=== PATIENT | male | born 1995 | race Hispanic/Latino ===

== ENCOUNTER 2024-11-12 13:48 | Emergency (ER) | payer SELFPAY ==
--- NOTE | ~2024-11-12 | XR_ITS ---
EXAMINATION: XR chest 2V DATE: 11/12/2024 15:32 INDICATION: Shortness of breath TECHNIQUE: PA and lateral views of the chest were obtained. COMPARISON: None FINDINGS: The lungs are clear with no focal airspace opacities, pulmonary edema, pleural effusion or pneumothor ax. The cardiomediastinal silhouette is normal. Visualized bones and soft tissues are unremarkable. IMPRESSION: 1. No acute cardiopulmonary disease. Reviewed, dictated and finalized at location A.
--- NOTE | 2024-11-12 13:50 | ECG_ITS ---
Test Date: 2024-11-12 14:11:05 Measurements Intervals [place] Rate: 100 P: 45 VT: 172 QRS: 107 QRSD: 89 T: 37 QT: 329 QTc: 426 Interpretive Statements SINUS TACHYCARDIA INDETERMINATE AXIS BORDERLINE ECG No previous ECG available for comparison Electronically Signed On 11-12-2024 15:50:45 CDT by Praneeth Adams M.D.
[2024-11-12 14:02] VITALS: BP 133/84; PULSE 100; RESP 19; TEMP 36.4; O2SAT 96
--- NOTE | 2024-11-12 14:02 | ED_ITS ---
HPI - SOB/Dyspnea General Chief Complaint: Shortness of Breath/Dyspnea Stated Complaint: SOB Time Seen by Provider: 11/12/24 14:02 Focused HPI: This is a 29 year old male that presents to the ER for shortness of breath. Reports history of asthma. Reports he has been out of his inhaler for a year. He is unsure the name of the inhaler, but uses it as needed. Reports he has been having frequent exacerbations. Denies fever, cough. GENERAL: Well-appearing, well-nourished, and in no acute distress. HEAD: Normocephalic, atraumatic. CHEST: No respiratory distress. Mild expiratory wheezing HEART: Regular rate and rhythm.? NEURO: ?Alert and oriented x3. Patient screened in triage and initial orders placed.? ?Additional care and disposition to be based upon?diagnostic testing and treatment. Related Data Allergies Allergy/AdvReac Type Severity Reaction Status Date / Time No Known Allergies Allergy Verified 11/12/24 13:49 Review of Systems 2 Review of Systems: All systems reviewed & are unremarkable except as noted in HPI and below PMFSH Past Medical History Medical History (Updated 11/12/24 @ 16:46 by Tiffani Silvestre PA-C) History of asthma Social History Social History (Updated 11/12/24 @ 15:59 by Tiffani Silvestre PA-C) Substance use: never Exam 2 Narrative: GENERAL: Well-appearing, well-nourished, and in no acute distress. HEAD: Normocephalic, atraumatic. EYES: EOMI. ENT: Nares clear, no rhinorrhea or epistaxis. Mucous membranes moist. Oropharynx without tonsillar hypertrophy exudate or other lesions. CHEST: No respiratory distress. Mild, expiratory wheezing. No rales or rhonchi HEART: Regular rate and rhythm. No murmur heard. Normal peripheral pulses. EXTREMITIES: Normal range of motion. No edema. SKIN: Warm, dry, no rash. NEURO: No focal deficits. Alert and oriented x3. PSYCH: Normal mood and affect Course Course Emergency Course: patient updated on his workup and agrees with plan of care Vital Signs Vital signs: Vital Signs Temperature 97.5 F L 11/12/24 14:02 Pulse Rate 100 11/12/24 14:02 Respiratory Rate 19 11/12/24 14:02 Blood Pressure 133/84 11/12/24 14:02 Pulse Oximetry 96 11/12/24 14:02 Oxygen Delivery Room Air 11/12/24 14:02 Temperature 97.5 F L 11/12/24 14:02 Pulse Rate 100 11/12/24 16:24 Respiratory Rate 17 11/12/24 16:24 Blood Pressure 113/77 11/12/24 16:05 Pulse Oximetry 99 11/12/24 16:06 Oxygen Delivery Room Air 11/12/24 16:06 MDM - SOB/Dyspnea MDM Narrative Medical decision making narrative: Patient presents to the emergency department for shortness of breath, reports he is currently out of his inhaler. He is afebrile and nontoxic appearing. Mild expiratory wheezing upon arrival. This improved after nebulizer treatment. Patient given a dose of prednisone. Blood work without concerning findings. Chest x-ray without acute cardiopulmonary abnormality. Patient updated on his workup and agrees with plan of care. Will be given a prescription for albuterol and continued on a steroid. He was instructed on the importance of seeing a primary doctor. He was given warnings to return to the ER Differential Diagnosis Differential diagnosis: Likely community acquired pneumonia and asthma with exacerbation Lab Data 11/12/24 16:09 11/12/24 16:09 Labs: Lab Results 11/12/24 Range/Units 16:09 WBC 10.1 H (4.5-10.0) K/mm3 RBC 5.05 (4.6-6.20) M/mm3 Hgb 14.1 (14.0-18.0) g/dL Hct 44.2 (42.0-52.0) % MCV 87.5 (80-100) fl MCH 27.9 (26-34) pg MCHC 31.9 L (32-36) g/dl RDW 13.1 (11.5-14.5) % Plt Count 321 (150-375) k/mm3 MPV 9.5 (7.4-10.4) fl Immature Gran % (Auto) 0.3 (0-0.5) % Neut % (Auto) 67.0 (45.5-73.1) % Lymph % (Auto) 21.5 (18.3-44.2) % [place] % (Auto) 5.9 (2.6-8.5) % Eos % (Auto) 4.8 H (0-4.4) % Baso % (Auto) 0.5 (0.2-1.2) % Lymph # (Auto) 2.17 (0.9-3.2) K/mm3 [place] # (Auto) 0.6 (0.1-0.6) K/mm3 Eos # (Auto) 0.5 H (0-0.3) K/mm3 Baso # (Auto) 0.1 (0.0-0.1) K/mm3 Abs Immat Gran (auto) 0.03 (0.00-0.031) K/mm3 Absolute Neuts (auto) 6.8 H (1.3-6.7) K/mm3 Absolute Nucleated RBC 0.000 (0.0-0.012) K/mm3 Nucleated RBC % 0.0 (0.0-0.2) % Sodium 139 (137-145) mmol/L Potassium 4.0 (3.4-5.0) mmol/L Chloride 104 (98-107) mmol/L Carbon Dioxide 24 (22-30) mmol/L Anion Gap 11 (4-12) mmol/L BUN 13 (9-20) mg/dL Creatinine 0.79 (0.7-1.3) mg/dL Estim Creat Clear Calc 176 ml/min Estimated GFR > 60 (59 - ) Glucose 84 (65-110) mg/dL Calcium 8.9 (8.4-10.2) mg/dL Total Bilirubin 0.6 (0.2-1.3) mg/dL AST 28 (17-59) U/L ALT 30 (6-50) U/L Alkaline Phosphatase 102 (38-126) U/L Total Protein 8.0 (6.3-8.2) g/dL Albumin 4.6 (3.5-5.1) g/dL Imaging Data Radiologist's impression: ITS Impressions Chest X-Ray 11/12/24 15:35 IMPRESSION: 1. No acute cardiopulmonary disease. ECG Data EKG #1: ECG completion date: 11/12/24 EKG Interpretation: tachycardia, sinus rhythm, no ST changes and normal QT Critical Care Time Critical Care Time Critical Care Time: No Discharge Plan Discharge Clinical Impression: Asthma exacerbation Qualifiers: Asthma severity: unspecified severity Asthma persistence: unspecified Qualified Code(s): J45.901 - Unspecified asthma with (acute) exacerbation Patient Disposition: Home Condition: Stable Instructions: Asthma (ED) Additional Instructions: Return to the Emergency Department if you experience fever, chest pain, shortness of breath, or any other symptoms that are concerning to you Take steroid (Prednisone) as prescribed. Albuterol 2 puffs every 4-6 hours as needed for shortness of breath or wheezing Follow up with your primary care doctor Patient Language: Portuguese Prescriptions: New prednisone 20 mg tablet 40 mg PO DAILY 4 Days Qty: 8 0RF albuterol sulfate [Ventolin HFA] 90 mcg/actuation HFA aerosol inhaler 2 puff inhalation QID PRN (Reason: shortness of breath or wheezing) Qty: 8.5 0RF Follow-up/Referrals: Dayday Restrepo MD [Physician] - PHYSICIAN,AUTOMATIC GLUING MACHINE OPERATOR [Primary Care Provider] -
--- NOTE | 2024-11-12 14:12 | PCRCNOTE ---
Pt. does not have a room yet to give the breathing treatment.
--- NOTE | 2024-11-12 14:17 | PCRCNOTE ---
Provider Tiffani Silvestre PA-C states they will notify us when Pt. gets a room so we can give the breathing treatment.
--- NOTE | 2024-11-12 15:38 | PCRCNOTE ---
Pt. doesn't have a room yet.
[2024-11-12] MEDS: predniSONE 20 MG TABLET 40 MG PO (16:02)
[2024-11-12 16:05] VITALS: BP 113/77; PULSE 99; RESP 12; O2SAT 100
[2024-11-12 16:06] VITALS: O2SAT 99
[2024-11-12] MEDS: IPRATROPIUM 0.5 MG/ALBUTEROL SULFATE 2.5 MG AMPUL.NEB 3 ML INHALATION (16:14)
[2024-11-12 16:15] VITALS: PULSE 93; RESP 14
[2024-11-12 16:15] LABS: Basophils Absolute Auto 0.1 K/mm3 (0.0-0.1); Basophils Percent Auto 0.5 % (0.2-1.2); Eosinophils Absolute Auto 0.5 K/mm3 (0-0.3); Eosinophils Percent Auto 4.8 % (0-4.4); Hematocrit 44.2 % (42.0-52.0); Hemoglobin 14.1 g/dL (14.0-18.0); Immature Granulocyte Absolute 0.03 K/mm3 (0.00-0.031); Immature Granulocyte Percent A 0.3 % (0-0.5); Lymphocytes Absolute Auto 2.17 K/mm3 (0.9-3.2); Lymphocytes Percent Auto 21.5 % (18.3-44.2); Mean Corpuscular HGB Conc 31.9 g/dl (32-36); Mean Corpuscular Hemoglobin 27.9 pg (26-34); Mean Corpuscular Volume 87.5 fl (80-100); Mean Platelet Volume 9.5 fl (7.4-10.4); Monocytes Absolute Auto 0.6 K/mm3 (0.1-0.6); Monocytes Percent Auto 5.9 % (2.6-8.5); Neutrophils Absolute Auto 6.8 K/mm3 (1.3-6.7); Platelet Count Result 321 k/mm3 (150-375); Red Blood Count 5.05 M/mm3 (4.6-6.20); Red Cell Distribution Width 13.1 % (11.5-14.5); White Blood Count 10.1 K/mm3 (4.5-10.0)
[2024-11-12 16:24] VITALS: PULSE 100; RESP 17
[2024-11-12 16:24] LABS: Alanine Aminotransferase 30 U/L (6-50); Albumin Level 4.6 g/dL (3.5-5.1); Alkaline Phosphatase 102 U/L (38-126); Anion Gap 11 mmol/L (4-12); Aspartate Amino Transferase 28 U/L (17-59); Bilirubin,Total 0.6 mg/dL (0.2-1.3); Blood Urea Nitrogen 13 mg/dL (9-20); Calcium 8.9 mg/dL (8.4-10.2); Carbon Dioxide 24 mmol/L (22-30); Chloride 104 mmol/L (98-107); Estimated CRCL calculation 176 ml/min; Estimated Glomerular Filt Rate > 60; Glucose 84 mg/dL (65-110); Sodium 139 mmol/L (137-145)
[2024-11-12 17:14] VITALS: BP 133/80; PULSE 97; RESP 15; O2SAT 98
== END 2024-11-12 17:15 | disposition home or self-care (01) ==
LOC: ANHED 16:49
PROVIDERS: Emergency Medicine; Emergency Provider Physician Assistant
DX: J45.901 Unspecified asthma with (acute) exacerbation (principal)
CPT/HCPCS: 36415; 71046; 80053; 85025; 93005; 94640; 99284; J7512